=== PATIENT | female | born 1995 | race Caucasian/White ===

== ENCOUNTER 2023-05-16 19:00 | Inpatient (IN) | payer OTHER, SELFPAY ==
[2023-05-16] MEDS: 0.9% Normal Saline Single 100 ML IV.SOLN. INTRA-UTER (08:08)
[2023-05-16 19:34] VITALS: BP 116/64; PULSE 65; PULSE 73; TEMP 36.9; O2SAT 99
[2023-05-16] MEDS: Lactated Ringers 1,000 ML 50 ML IV (19:37)
[2023-05-16 19:53] LABS: Absolute Lymphocyte Count 1.92 X10^3/uL (0.83-4.51); Absolute Neutrophil Count 6.1 X10^3/uL (2.0-7.7); Basophil# 0.01 X10^3/uL; Basophil% 0.1 % (0-1); Eosinophil# 0.03 X10^3/uL; Eosinophils% 0.3 % (0-5); Hematocrit 32.1 % (37-47); Hemoglobin 11.1 g/dL (12.0-15.0); Lymphocyte # 1.92 X10^3/ul (0.83-4.51); Lymphocyte % 22.2 % (19-41); Mean Corp Hgb Conc 34.6 g/dL (32-36); Mean Corpuscular Hgb 33.4 pg (27.0-32.0); Mean Corpuscular Volume 96.7 fL (81-99); Monocyte# 0.55 X10^3/uL; Monocyte% 6.4 % (0-10); NRBC Flagged by Analyzer 0 % (0-5); Neutrophil # 6.09 X10^3/uL (2.7-7.7); Neutrophil % 70.5 % (47-70); Platelet Count 201 K/mm3 (150-450); RBC Distribution Width SD 46.5 fl (35.1-43.9); Red Blood Count 3.32 M/mm3 (4.2-5.4); White Blood Count 8.6 K/mm3 (4.4-11.0)
--- NOTE | 2023-05-16 20:16 | PCM.HP.OB ---
HPI - General General Date of Admission: 05/16/23 Date of Service: 05/16/23 Chief Complaint: Induction of labor HPI Narrative POONAM MAURICE, is a 27 F who presents at 41 weeks for induction of labor. She denies any vaginal bleeding or leaking of fluid. She is had good movement Maternal Data Information Final ADIN: 05/09/23 Gestational age: 41 0/7 weeks PFSH PFSH Home Medications ferrous sulfate 325 mg (65 mg iron) tablet 325 mg PO DAILY anemia 05/16/23 [History Last Taken 05/16/23] vitamin with calcium no.72-iron 27 mg-folic acid 1 mg tablet ( Vitamins Plus Low Iron) tab 05/16/23 [History Last Taken 05/16/23] Allergy/AdvReac Type Severity Reaction Status Date / Time No Known Allergies Allergy Verified 05/16/23 20:01 ROS Constitutional Constitutional: Denies fatigue, fever(s) or malaise Eyes Eyes: Denies change in vision ENT HEENT: Denies dizziness or headache(s) Cardiovascular Cardiovascular: Denies chest pain, dyspnea or lightheadedness Respiratory/Chest Respiratory/Chest: Denies cough or dyspnea Gastrointestinal Gastrointestinal: Denies change in bowel habits Genitourinary Genitourinary: Denies burning urination or genital lesions Integumentary Integumentary: Denies rash Neurologic Neurologic: Denies confusion, dizziness, headache(s), numbness or weakness Vital Signs Vital Signs Vital Signs: 05/16/23 19:34 05/16/23 19:34 05/16/23 19:34 Temperature Temperature Source Pulse Rate 65 73 Blood Pressure 116/64 BP Systolic 116 BP Diastolic 64 Pulse Ox 05/16/23 19:34 05/16/23 19:34 05/16/23 19:34 Temperature 98.4 F Temperature Source Temporal Pulse Rate Blood Pressure BP Systolic BP Diastolic Pulse Ox 99 Physical Exam Const alert and no apparent distress General Appearance: cooperative HEENT normocephalic Resp normal respiratory effort Cardio regular rate GI soft to palpation GI Narrative: gravid, nontender, appropriate for gestational age Extremity no calf tenderness General Extremity: edema Skin no wounds Rashes: No rashes noted Psych activity/motor behavior normal Labs Labs Labs: Blood Type Pending Antibody Screen Pending Hct 32.1 % (37-47) L Hgb 11.1 g/dL (12.0-15.0) L Syphilis Total Ab Pending Assessment & Plan (1) 41 weeks gestation of : PLAN: Plan 27-year-old 1 para 0 at 41 weeks gestation. Risk benefits and alternatives to induction were discussed with patient, her questions were answered to her satisfaction she desires to proceed. Estimated weight is less than 4500 g clinically and pelvis clinically adequate to expect vaginal delivery. Procedure note: Cervix is 270-2, mid position and medium consistency. Doyle catheter placed over stylette in usual sterile fashion and balloon inflated to 40 cc. Placement over internal os confirmed. Incidental artificial rupture of membranes with Doyle insertion with return of moderate amount of clear fluid. May have routine pain control measures as needed. May have morphine until in active labor
[2023-05-16 20:23] VITALS: BMI 27.0
[2023-05-16 20:51] LABS: Syphilis Antibodies Non-reactive
[2023-05-16 21:48] VITALS: O2SAT 100
[2023-05-16 21:49] VITALS: BP 118/72; PULSE 63; TEMP 36.1
[2023-05-16 22:51] VITALS: BP 106/58; TEMP 36.2
[2023-05-16 22:52] VITALS: PULSE 95; O2SAT 82
[2023-05-17] VITALS (74 sets, daily range): BP systolic 86–123; BP diastolic 43–88; PULSE 8–103; RESP 16; TEMP 36.1–37.4; O2SAT 80–100
[2023-05-17] MEDS: LACTATED RINGERS 500 ML 999 ML IV (00:54)
[2023-05-17] MEDS: 0.9% Saline Lock 10 ML Syringe IV (01:24)
[2023-05-17] MEDS: Ondansetron 4 MG/2 ML Vial IV (01:24)
[2023-05-17] MEDS: fentaNYL-bupivacaine (epidural) 100 ML BAG EPIDURAL ×2 (01:25→06:10)
[2023-05-17] MEDS: Lactated Ringers 1,000 ML 200 ML IV (06:02)
[2023-05-17] MEDS: Oxytocin 15 Units/NS 250ml 15 UNITS/250 ML IV.SOLN 2 UNITS IV (06:44)
--- NOTE | 2023-05-17 07:17 | NURSING ---
Reveiwed and agreed with Sintia VILLAGOMEZ charting.
[2023-05-17] MEDS: Oxytocin 15 Units/NS 250ml 15 UNITS/250 ML IV.SOLN 83 UNITS IV (08:00)
--- NOTE | 2023-05-17 08:20 | EX.PCM.OBRPT ---
Vaginal Delivery Operative Information Date of Procedure: 05/17/23 Pre-Operative Diagnosis: labor, prolonged decelerations Post-Operative Diagnosis: same Surgery / Procedure Performed: Vacuum Assisted Vaginal Delivery Type of Anesthesia: Epidural Special Medications: none Estimated Blood Loss: 300 Time of Delivery: 08:55 Findings Description of Procedure: Patient was complete and pushing. Had prolonged decelerations. Recovery to the 90s. The patient was CHANTAL. Epidural was adequate. Patient had recently been straight cathed. Pelvis cleared clinically adequate to expect vaginal delivery. Minimal caput and station was plus 4 out of 5. She was labia slightly with pushing. I discussed this with the patient and her trial of vacuum-assisted delivery for prolonged decelerations and they desire to proceed. The vacuum was placed on the flexion point. The vacuum was created to 550 mmHg. I pulled with 1 contraction no pop offs. The vacuum was removed as the patient was . She delivered the remainder the head with maternal pushing efforts only. A vigorous male was delivered CHANTAL over a second-degree perineal laceration. The remainder the was delivered with maternal pushing and gentle traction only in less than 15 seconds. The Pitocin infusion was initiated for active management of the third stage. The cord was clamped and cut after approximately 20 seconds. The was attended to by the waiting nursing staff. The placenta was delivered spontaneously and intact. The cervix and vagina were intact. The second-degree perineal laceration was repaired with 3-0 Vicryl suture in a running standard fashion. Sponge and needle counts were correct. A vaginal sweep was completed by me. Presentation: CHNATAL Amniotic Membrane Rupture Type: Artificial Amniotic Fluid Description: Clear Placental Delivery Description: Spontaneous Placenta Disposition: [facility] Cord Vessel Description: 3 Vessels Cord Entanglement: None Cord Gases: ABG and VBG A Gender: Male (Osborne) (1 minute): 8 (5 minute): 9 Delayed Cord Clamping: No Post Vaginal Delivery Medications Given After Delivery: IV Pitocin and IM Pitocin Episiotomy Description: None Laceration: 2nd degree Complication Complications: None Admit VTE Documentation VTE Present on Admission: No
[2023-05-17 10:46] LABS: Hepatitis C Antibody Non-Reactive (Nonreactive)
[2023-05-17] MEDS: Ibuprofen 600 MG Tablet PO (14:57)
[2023-05-17] MEDS: Benzocaine/Lanolin/Aloe Vera 1 SPRAY EACH TOPICAL (15:01)
[2023-05-17] MEDS: Acetaminophen 500 MG Tablet 1000 MG PO (20:27)
[2023-05-18] MEDS: Ibuprofen 600 MG Tablet PO ×2 (00:14→07:55)
[2023-05-18 05:09] VITALS: BP 106/65; PULSE 71; RESP 16; TEMP 36.9
[2023-05-18] MEDS: Acetaminophen 500 MG Tablet 1000 MG PO (05:14)
[2023-05-18 07:57] VITALS: BP 115/76; PULSE 73; RESP 14; TEMP 36.2; O2SAT 98
--- NOTE | 2023-05-18 08:24 | PN.OBGYN_ITS ---
Subjective Subjective Doing well per patient and nursing staff. Ambulating and taking PO without difficulty. Voiding and passing flatus. Pain controlled. , services for assistance. Denies headache, visual changes, chest pain, shortness of breath, leg pain or increased bleeding. Lochia normal. Objective Data Objective Data Vital Signs: Vital Signs Temp Pulse Resp BP Pulse Ox O2 Del Method 97.2 F L 73 14 115/76 98 Room Air 05/18/23 07:57 05/18/23 07:57 05/18/23 07:57 05/18/23 07:57 05/18/23 07:57 05/18/23 07:57 Oxygen Delivery Method Room Air Weight: 172 lb 12.8 oz Body Mass Index (BMI) 27.0 Intake & Output: Intake and Output for Last 24 Hours 05/16/23 05/17/23 05/18/23 23:59 23:59 23:59 Intake Total 3299.34 / 3299.34 Output Total 1700 / 1700 Balance 1599.34 / 1599.34 Lab / Micro Data 05/16/23 19:37 Labs: Laboratory Results - last 24 hr 05/16/23 22:50: Hepatitis C Antibody Non-Reactive 05/17/23 11:10: Screen NEGATIVE, Baby's Blood Type O POSITIVE, Baby's [place] NEGATIVE ROS Constitutional Constitutional: Reports systems reviewed and no addt'l complaints, except as documented; Denies headache(s) Eyes Eyes: Denies acute decrease in peripheral vision, blurry vision or change in vis ion ENT HEENT: Reports systems reviewed and no addt'l complaints, except as documented Cardiovascular Cardiovascular: Denies chest pain or dizziness Respiratory/Chest Respiratory/Chest: Denies cough, dyspnea, dyspnea on exertion, shortness of breath at rest or shortness of breath with exertion Gastrointestinal Gastrointestinal: Denies abdominal pain, diarrhea, nausea or vomiting Genitourinary Genitourinary: Denies abdominal discomfort Musculoskeletal Musculoskeletal: Denies limited range of motion Integumentary Integumentary: Reports systems reviewed and no addt'l complaints, except as documented Neurologic Neurologic: Reports systems reviewed and no addt'l complaints, except as documented Psychiatric Psychiatric: Reports systems reviewed and no addt'l complaints, except as documented Endocrine Endocrinology: Reports systems reviewed and no addt'l complaints, except as documented Hematologic/Lymphatic Hematologic/Lymphatic: Reports systems reviewed and no addt'l complaints, except as documented Allergic/Immunologic Allergic/Immunologic: Reports systems reviewed and no addt'l complaints, except as documented Physical Exam Const alert and oriented x3 General Appearance: cooperative Orientation / Consciousness: awake, oriented to person, oriented to place and oriented to time Exam Limitations: no limitations HEENT normocephalic Head and Scalp: normal to inspection, normocephalic and atraumatic Face and Sinus: normal facial exam Eyes General Eye: normal appearance of both eyes Neck full ROM Chest Chest: symmetrical chest wall rise Resp normal respiratory effort and normal air movement Auscultation: clear to auscultation bilaterally Cardio regular rate, regular rhythm, S1 normal heart sound, S2 normal heart sound, no murmurs, no rub, no gallops and no clicks GI normal to inspection, nondistended, normoactive bowel sounds and non-tender appearance of the vagina normal Bladder / Kidney Exam: no CVA tenderness Back/Spine normal ROM Extremity normal to inspection and full ROM Skin no rashes or lesions noted Neuro oriented x3, CN's II-XII intact bilaterally and moves all extremities Sensorium / Orientation: awake, alert and oriented to person Motor Exam: clonus absent Deep Tendon Reflexes: Rt Patellar (L4): 2+ and Lt Patellar (L4): 2+ Assessment & Plan (1) Vacuum-assisted vaginal delivery: (2) Lactating mother: (3) Second degree perineal laceration: PLAN: Plan 1) PPD #1 VAVD 2) Vitals stable 3) I&O 4) 5) Planning D/C home tomorrow
--- NOTE | 2023-05-18 08:36 | PCM.PN.OB ---
Objective Data Objective Data Vital Signs: Vital Signs Temp Pulse Resp BP Pulse Ox O2 Del Method 97.2 F L 73 14 115/76 98 Room Air 05/18/23 07:57 05/18/23 07:57 05/18/23 07:57 05/18/23 07:57 05/18/23 07:57 05/18/23 07:57 Oxygen Delivery Method Room Air Weight: 172 lb 12.8 oz Body Mass Index (BMI) 27.0 Intake & Output: Intake and Output for Last 24 Hours 05/16/23 05/17/23 05/18/23 23:59 23:59 23:59 Intake Total 3299.34 / 3299.34 Output Total 1700 / 1700 Balance 1599.34 / 1599.34 Lab / Micro Data 05/16/23 19:37 Labs: Laboratory Results - last 24 hr 05/16/23 22:50: Hepatitis C Antibody Non-Reactive 05/17/23 11:10: Screen NEGATIVE, Baby's Blood Type O POSITIVE, Baby's [place] NEGATIVE Assessment & Plan (1) Second degree perineal laceration: PLAN: Plan
--- NOTE | 2023-05-18 08:49 | PN.OBGYN_ITS ---
Subjective Subjective Doing well per patient and nursing staff. Ambulating and taking PO without difficulty. Voiding and passing flatus. Pain controlled. , services for assistance. Denies headache, visual changes, chest pain, shortness of breath, leg pain or increased bleeding. Lochia normal. Objective Data Objective Data Vital Signs: Vital Signs Temp Pulse Resp BP Pulse Ox O2 Del Method 97.2 F L 73 14 115/76 98 Room Air 05/18/23 07:57 05/18/23 07:57 05/18/23 07:57 05/18/23 07:57 05/18/23 07:57 05/18/23 07:57 Oxygen Delivery Method Room Air Weight: 172 lb 12.8 oz Body Mass Index (BMI) 27.0 Intake & Output: Intake and Output for Last 24 Hours 05/16/23 05/17/23 05/18/23 23:59 23:59 23:59 Intake Total 3299.34 / 3299.34 Output Total 1700 / 1700 Balance 1599.34 / 1599.34 Lab / Micro Data 05/16/23 19:37 Labs: Laboratory Results - last 24 hr 05/16/23 22:50: Hepatitis C Antibody Non-Reactive 05/17/23 11:10: Screen NEGATIVE, Baby's Blood Type O POSITIVE, Baby's [place] NEGATIVE ROS Constitutional Constitutional: Reports systems reviewed and no addt'l complaints, except as documented; Denies headache(s) Eyes Eyes: Denies acute decrease in peripheral vision, blurry vision or change in vis ion ENT HEENT: Reports systems reviewed and no addt'l complaints, except as documented Cardiovascular Cardiovascular: Denies chest pain or dizziness Respiratory/Chest Respiratory/Chest: Denies cough, dyspnea, dyspnea on exertion, shortness of breath at rest or shortness of breath with exertion Gastrointestinal Gastrointestinal: Denies abdominal pain, diarrhea, nausea or vomiting Genitourinary Genitourinary: Denies abdominal discomfort Musculoskeletal Musculoskeletal: Denies limited range of motion Integumentary Integumentary: Reports systems reviewed and no addt'l complaints, except as documented Neurologic Neurologic: Reports systems reviewed and no addt'l complaints, except as documented Psychiatric Psychiatric: Reports systems reviewed and no addt'l complaints, except as documented Endocrine Endocrinology: Reports systems reviewed and no addt'l complaints, except as documented Hematologic/Lymphatic Hematologic/Lymphatic: Reports systems reviewed and no addt'l complaints, except as documented Allergic/Immunologic Allergic/Immunologic: Reports systems reviewed and no addt'l complaints, except as documented Physical Exam Const alert and oriented x3 General Appearance: cooperative Orientation / Consciousness: awake, oriented to person, oriented to place and oriented to time Exam Limitations: no limitations HEENT normocephalic Head and Scalp: normal to inspection, normocephalic and atraumatic Face and Sinus: normal facial exam Eyes General Eye: normal appearance of both eyes Neck full ROM Chest Chest: symmetrical chest wall rise Resp normal respiratory effort and normal air movement Auscultation: clear to auscultation bilaterally Cardio regular rate, regular rhythm, S1 normal heart sound, S2 normal heart sound, no murmurs, no rub, no gallops and no clicks GI normal to inspection, nondistended, normoactive bowel sounds and non-tender appearance of the vagina normal Back/Spine normal ROM Extremity normal to inspection and full ROM Skin no rashes or lesions noted Neuro oriented x3 and moves all extremities Sensorium / Orientation: awake, alert and oriented to person Assessment & Plan (1) Second degree perineal laceration: (2) Lactating mother: (3) Vacuum-assisted vaginal delivery: PLAN: Plan 1) PPD #1 VAVD 2) without difficulty 3) Vitals stable 4) Pain management 5) Follow up in 2 weeks and 6 weeks PP 6) D/C home today 7) Declines LARC
--- NOTE | 2023-05-18 08:51 | PCM.DC.SUM ---
Providers Date of Admission: 05/16/23 Date of Discharge: 05/18/23 Primary Care Physician: Obdulia Primary Care Phys Reason For Visit: INDUCTION/VAGINAL DELIVERY Diagnosis Discharge Diagnosis (1) Second degree perineal laceration: Status: Acute Code(s): O70.1 - Second degree perineal laceration during delivery (2) Lactating mother: Status: Acute Code(s): Z39.1 - Encounter for care and examination of lactating mother (3) Vacuum-assisted vaginal delivery: Status: Acute Code(s): Z37.9 - Outcome of delivery, unspecified Plan 1) PPD #1 VAVD 2) without difficulty 3) Vitals stable 4) Pain management 5) Follow up in 2 weeks and 6 weeks PP 6) D/C home today 7) Declines L[facility] Medications at Discharge Home Medications vitamin with calcium no.72-iron 27 mg-folic acid 1 mg tablet ( Vitamins Plus Low Iron) tab 05/16/23 acetaminophen 500 mg tablet 1,000 mg (2 x 500 mg) PO Q6H PRN PRN Pain 1-10 Or Fever #0 tabs 05/18/23 benzocaine 20 %-menthol 0.5 % topical aerosol (Dermoplast (with menthol)) 1 spray topical TID PRN PRN perineal discomfort #0 grams 05/18/23 ibuprofen 600 mg tablet 600 mg PO Q6H PRN PRN Pain Score 1-3 #0 tabs 05/18/23 Hospital Course Summary of Care Provided Minutes Spent on Discharge: 15 Weight / BMI Weight Weight: 172 lb 12.8 oz Body Mass Index (BMI) 27.0 ABG / Lab / Microbiology Data 05/16/23 19:37 Laboratory: Laboratory Results - last 24 hr 05/16/23 22:50: Hepatitis C Antibody Non-Reactive 05/17/23 11:10: Screen NEGATIVE, Baby's Blood Type O POSITIVE, Baby's [place] NEGATIVE D/C Instructions Discharge Diet: No restrictions Discharge Activity: Return to Normal Activity, May Drive, May Shower and May Take a Tub Bath May resume sexual activity in: 6 weeks Weight Bearing Status: Full weight bearing Call your doctor if you observe: Fever of 101 or Higher, Inability to urinate, Inability to have a bowel movement, Using more than 1 pad per hour, Shortness of breath, Chest pain, Increased palpitations (irregular heartbeat) and Calf discomfort Meaningful Use Info Meaningful Use Diagnoses (Choose all that apply): None applicable Discharge Plan Admission Admit Date/Time: 05/16/23 19:00 Primary Reason for Your Visit: Vaginal delivery Attending Provider: Emily Kuhn Primary Care Provider: Care Physician,No Primary Instructions Patient Instructions: After a Vaginal Discharge Orders/Prescriptions Prescriptions: New acetaminophen 500 mg Tablet 1,000 mg PO Q6H PRN PRN (Reason: Pain 1-10 Or Fever) Qty: 0 0RF Dermoplast (with menthol) 20-0.5 % Aerosol 1 spray topical TID PRN PRN (Reason: perineal discomfort) Qty: 0 0RF Protocol: *Topical Application Instructions APPLICATION INSTRUCTIONS: 1 spray 3 times a day as needed for perineal discomfort ibuprofen 600 mg Tablet 600 mg PO Q6H PRN PRN (Reason: Pain Score 1-3) Qty: 0 0RF Continued Vitamin Plus Low Iron 27 mg iron- 1 mg tablet Patient Comments: TAKE ONE TABLET BY MOUTH DAILY Discontinued ferrous sulfate 325 mg (65 mg iron) tablet 325 mg PO DAILY Referrals / Follow Up: Emily Kuhn MD [Med Staff - Active Staff] - (Follow up for virtual visit in 2 weeks and 6 weeks for PP visit) Care Physician,No Primary [Primary Care Provider] - Disposition Disposition (needs filled in before D/C Order can be placed): Home, Self Care
[2023-05-18 11:53] VITALS: BP 117/66; PULSE 82; RESP 16; TEMP 36.8
== END 2023-05-18 13:09 | disposition home or self-care (01) | DRG 807 ==
PROVIDERS: Admitting Provider Obstetrics & Gynecology; Referring Provider Obstetrics & Gynecology; Visit Provider Obstetrics & Gynecology
DX: O76 Abnormality in fetal heart rate and rhythm complicating labor and delivery (principal); Z37.0 Single live birth; O48.0 Post-term pregnancy; O70.1 Second degree perineal laceration during delivery; Z3A.41 41 weeks gestation of pregnancy
CPT/HCPCS: 59025; 59050; 85025; 85461; 86780; 86803; 86850; 86900; 86901; 99221; J7120; A4216; G0378; J2405; J2790